=== PATIENT | female | born 1960 | race African-American/Black ===

== ENCOUNTER 2024-07-14 03:23 | Emergency (ER) | payer MEDICAID, OTHER ==
[~2024-07-14] VITALS: Ht 175.3 cm; Wt 102.0 kg
[2024-07-14 03:39] VITALS: O2SAT 99
[2024-07-14] MEDS: KETOROLAC 30MG/ML VIAL IM ONE (05:00)
[2024-07-14 05:21] VITALS: BP 157/72; PULSE 71; RESP 19; TEMP 36.78072; O2SAT 99
== END 2024-07-14 05:22 | disposition home or self-care (01) ==
LOC: ER 03:23
DX: M10.9 Gout, unspecified (principal); I10 Essential (primary) hypertension; Z90.710 Acquired absence of both cervix and uterus; Z98.890 Other specified postprocedural states
CPT/HCPCS: 99283; 96372; J1885